=== PATIENT | male | born 1935 | race Caucasian/White ===

== ENCOUNTER 2020-07-25 10:00 | Inpatient (IN) | payer MEDICARE, MEDICAID ==
[~2020-07-25] VITALS: Ht 167.6 cm; Wt 75.0 kg
[2020-07-25] MEDS ORDERED: SODIUM CHLORIDE 0.9% 1,000 ML ONE ×2 (10:14→14:50)
[2020-07-25] MEDS ORDERED: SODIUM CHLORIDE 0.9% 1,000 ML IV ONE (10:30)
[2020-07-25 10:56] LABS: GLUCOMETER DEV NAME(LOC) SDS.; GLUCOSE,POINT OF CARE 137 MG/DL (70-110)
[2020-07-25] MEDS ORDERED: MIDAZOLAM HCL 2 MG/2 ML VIAL ONE (16:56)
[2020-07-25] MEDS ORDERED: FentaNYL CITRATE PF 100 MCG/2 ML VIAL ONE (16:56)
[2020-07-25] MEDS ORDERED: IOHEXOL 300 MG/ML 150 ML VIAL ONE (16:57)
[2020-07-25] MEDS ORDERED: SODIUM BICARBONATE 50 MEQ/50 ML VIAL ONE (16:57)
[2020-07-25] MEDS ORDERED: LIDOCAINE/PF 1% 30 ML VIAL ONE (16:57)
[2020-07-25] MEDS ORDERED: HEPARIN SODIUM 1000 UNITS/NS 500 ML ONE (16:57)
[2020-07-25] MEDS ORDERED: IOHEXOL 300 MG/ML 150 ML VIAL IARTER ONE (17:15)
[2020-07-25] MEDS ORDERED: HEPARIN SODIUM 1000 UNITS/NS 1,000 ML IARTER ONE (17:15)
[2020-07-25] MEDS ORDERED: LIDOCAINE 1% 30 ML/SOD BICARB 8.4% 4 ML SQ ONE (17:15)
[2020-07-25] MEDS ORDERED: SODIUM CHLORIDE 0.9% 500 ML IV ONE (17:15)
[2020-07-25] MEDS ORDERED: HydrALAZINE HCL 20 MG/ML VIAL ONE (17:25)
[2020-07-25] MEDS ORDERED: HydrALAZINE HCL 20 MG/ML VIAL IVP ONE (17:30)
[2020-07-25] MEDS ORDERED: HEPARIN SODIUM,PORCINE 5,000 UNITS/ML VIAL IVP ONE (17:30)
[2020-07-25] MEDS ORDERED: IOHEXOL 300 MG/ML 100 ML VIAL ONE (17:36)
[2020-07-25] MEDS ORDERED: IOHEXOL 300 MG/ML 50 ML VIAL ONE (17:50)
[2020-07-25] MEDS ORDERED: METOPROLOL TARTRATE 5 MG/5 ML VIAL ONE (17:51)
[2020-07-25] MEDS ORDERED: METOPROLOL TARTRATE 5 MG/5 ML VIAL IVP ONE ×2 (18:00→18:15)
[2020-07-25 18:09] VITALS: BP 132/56
[2020-07-25] MEDS ORDERED: NITROGLYCERIN 400 MCG/SUBLINGUAL SPRAY 4.9 GM BOTTLE SL ONE (18:15)
[2020-07-25] MEDS ORDERED: IOHEXOL 300 MG/ML 100 ML VIAL IARTER ONE (18:30)
[2020-07-25] MEDS ORDERED: IOHEXOL 300 MG/ML 50 ML VIAL IARTER ONE (18:30)
[2020-07-25] MEDS ORDERED: DEXTROSE 50%-WATER 25 GM/50 ML SYRINGE IVP PRN (19:00)
[2020-07-25] MEDS ORDERED: HydrALAZINE HCL 20 MG/ML VIAL IVP PRN (19:00)
[2020-07-25] MEDS ORDERED: ZOLPIDEM TARTRATE 5 MG TABLET PO PRN (19:00)
[2020-07-25] MEDS ORDERED: MAGNESIUM HYDROXIDE SUSPENSION 30 ML UDCUP PO PRN (19:00)
[2020-07-25] MEDS ORDERED: ONDANSETRON HCL 4 MG/2 ML VIAL IVP PRN (19:00)
[2020-07-25] MEDS ORDERED: INSULIN LISPRO 100 UNITS/ML SQ PRN (19:00)
[2020-07-25] MEDS ORDERED: ACETAMINOPHEN 325 MG TABLET PO PRN (19:00)
[2020-07-25] MEDS ORDERED: BISACODYL 10 MG RECTAL RECTAL SUPPOSITORY PR PRN (19:00)
[2020-07-25] MEDS ORDERED: MORPHINE SULFATE 2 MG/ML SYRINGE IVP PRN (19:00)
[2020-07-25 20:28] VITALS: BP 151/79
[2020-07-25] MEDS: DOCUSATE SODIUM 100 MG CAPSULE PO SCH (21:00)
[2020-07-25] MEDS: CARVEDILOL 25 MG TABLET PO SCH (21:02)
[2020-07-25 21:20] VITALS: BP 117/59
[2020-07-25] MEDS: HYDROCODONE/ACETAMINOPHEN 5-325 MG TABLET PO PRN (21:25)
[2020-07-25] MEDS ORDERED: ROPINIRole HCL 0.25 MG TABLET PO SCH (22:15)
[2020-07-25 22:20] VITALS: BP 121/61
[2020-07-25 23:45] VITALS: BP 117/50
[2020-07-26] MEDS ORDERED: HEPARIN SODIUM,PORCINE 5,000 UNITS/ML VIAL SQ SCH
[2020-07-26 00:40] LABS: GLUCOMETER DEV NAME(LOC) 6S.1; GLUCOSE,POINT OF CARE 176 MG/DL (70-110)
[2020-07-26 01:12] VITALS: BP 142/67
[2020-07-26] MEDS: HYDROCODONE/ACETAMINOPHEN 5-325 MG TABLET PO PRN (05:05)
[2020-07-26 05:45] VITALS: BP 158/77
[2020-07-26] MEDS: CARVEDILOL 25 MG TABLET PO SCH (06:09)
[2020-07-26 07:58] VITALS: BP 131/64
[2020-07-26] MEDS ORDERED: ASPIRIN 81 MG CHEWABLE TABLET PO SCH (09:00)
[2020-07-26] MEDS: LOSARTAN POTASSIUM 50 MG TABLET PO SCH ×2 (09:00→09:06)
[2020-07-26] MEDS ORDERED: CLOPIDOGREL BISULFATE 75 MG TABLET PO SCH (09:00)
[2020-07-26] MEDS ORDERED: ROPINIRole HCL 0.25 MG TABLET PO SCH (09:00)
[2020-07-26] MEDS ORDERED: PANTOPRAZOLE SODIUM 40 MG DR TABLET PO SCH (09:00)
[2020-07-26] MEDS: DOCUSATE SODIUM 100 MG CAPSULE PO SCH (09:06)
[2020-07-26 12:53] LABS: GLUCOMETER DEV NAME(LOC) 6N.1; GLUCOSE,POINT OF CARE 123 MG/DL (70-110)
[2020-07-26] MEDS ORDERED: CARV25 PO (13:15)
[2020-07-26] MEDS ORDERED: ASPI-1111 PO (13:15)
[2020-07-26] MEDS ORDERED: ROPI0.2535 PO (13:16)
[2020-07-26] MEDS ORDERED: LOSA50TA37 PO (13:16)
[2020-07-26] MEDS ORDERED: CLOP75TA60 PO (13:19)
[2020-07-27 05:29] LABS: GLUCOMETER DEV NAME(LOC) 6S.1; GLUCOSE,POINT OF CARE 201 MG/DL (70-110)
== END 2020-07-26 14:25 | disposition home or self-care (01) | DRG 287 ==
LOC: CATHLAB 10:00 → 6S 10:01
PROVIDERS: ADMIT Internal Medicine; ATTEND Internal Medicine Interventional Cardiology
PROC: 4A023N7 Measurement of Cardiac Sampling and Pressure, Left Heart, Percutaneous Approach (ICD-10-PCS; principal; 2020-07-25)
PROC: B41FYZZ Fluoroscopy of Right Lower Extremity Arteries using Other Contrast (ICD-10-PCS; 2020-07-25)
PROC: B211YZZ Fluoroscopy of Multiple Coronary Arteries using Other Contrast (ICD-10-PCS; 2020-07-25)
PROC: B215YZZ Fluoroscopy of Left Heart using Other Contrast (ICD-10-PCS; 2020-07-25)
PROC: B213YZZ Fluoroscopy of Multiple Coronary Artery Bypass Grafts using Other Contrast (ICD-10-PCS; 2020-07-25)
DX: I24.0 Acute coronary thrombosis not resulting in myocardial infarction (principal); I25.10 Atherosclerotic heart disease of native coronary artery without angina pectoris; I25.5 Ischemic cardiomyopathy; E11.51 Type 2 diabetes mellitus with diabetic peripheral angiopathy without gangrene; E78.5 Hyperlipidemia, unspecified; I10 Essential (primary) hypertension; Z95.1 Presence of aortocoronary bypass graft; Z95.810 Presence of automatic (implantable) cardiac defibrillator; Z79.899 Other long term (current) drug therapy; Z79.82 Long term (current) use of aspirin
CPT/HCPCS: 93005; 93459; J0360; J1644; J2250; J3010; J3490; J7030; Q9967